=== PATIENT | male | born 1965 | race African-American/Black ===

== ENCOUNTER 2022-03-26 18:18 | Emergency (ER) | payer OTHER ==
[2022-03-26 21:05] VITALS: BP 125/90
[2022-03-26] MEDS ORDERED: IBUPROFEN 600 MG TAB PO ONE (23:25)
[2022-03-26] MEDS ORDERED: ACETAMINOPHEN 325 MG/10.15 ML ORAL LIQD UNIT DOSE PO ONE (23:25)
--- NOTE | 2022-03-26 23:30 | Emergency Department Report ---
ED General Adult HPI - General Chief complaint: Laceration/Recheck/Suture Stated complaint: 4TH META CARPAL BROKEN PUI?: No Time Seen by Provider: 03/26/22 23:23 Source: patient Mode of arrival: Ambulatory Limitations: No Limitations - History of Present Illness Initial comments: This is a 56-year-old male came in today after he sustained a fall on March 25 yesterday on the right hand. Patient denies any other symptoms. Patient she went to urgent care where he had x-ray done that revealed he is got transverse fracture of the proximal third of the shaft of the fourth metacarpal with angulation. During my evaluation patient is able to flex and extend his fingers of the right. Patient's sensation are intact as well. - Related Data Previous Rx's Medication Instructions Recorded Last Taken Type traMADoL [Ultram] 50 mg PO Q4HR PRN 4 Days #12 tablet 03/26/22 Unknown Rx ED Review of Systems ROS: Stated complaint: 4TH META CARPAL BROKEN Other details as noted in HPI Constitutional: see HPI Eyes: as per HPI ENT: as per HPI Respiratory: see HPI Cardiovascular: as per HPI Endocrine: see HPI Gastrointestinal: as per HPI Genitourinary: as per HPI Musculoskeletal: as per HPI Skin: as per HPI Neurological: as per HPI Psychiatric: as per HPI Hematological/Lymphatic: as per HPI ED Past Medical Hx - Past Medical History Previous Medical History?: No - Medications Home Medications: Home Medications Medication Instructions Recorded Confirmed Last Taken Type traMADoL [Ultram] 50 mg PO Q4HR PRN 4 Days #12 tablet 03/26/22 Unknown Rx ED Physical Exam - General Limitations: No Limitations General appearance: alert, in no apparent distress - Head Head exam: Present: atraumatic, normocephalic, normal inspection - Eye Eye exam: Present: normal appearance, PERRL, EOMI Pupils: Present: normal accommodation - ENT ENT exam: Present: normal exam - Neck Neck exam: Present: normal inspection - Respiratory Respiratory exam: Present: normal lung sounds bilaterally - Cardiovascular Cardiovascular Exam: Present: regular rate, normal rhythm - GI/Abdominal GI/Abdominal exam: Present: soft - Extremities Exam Extremities exam: Present: normal inspection, full ROM, tenderness (Point tenderness at fourth metacarpal bone of the right; mild swelling.), normal capillary refill - Back Exam Back exam: Present: normal inspection, full ROM, tenderness - Neurological Exam Neurological exam: Present: alert, altered, oriented X3 - Psychiatric Psychiatric exam: Present: normal affect, normal mood - Skin Skin exam: Present: warm ED Course Vital Signs 03/26/22 20:35 Temperature 98.0 F Pulse Rate 68 Respiratory 16 Rate Blood Pressure 125/90 O2 Sat by Pulse 99 Oximetry Critical care attestation.: If time is entered above; I have spent that time in minutes in the direct care of this critically ill patient, excluding procedure time. ED Disposition Clinical Impression: Metacarpal bone fracture Disposition: HOME / SELF CARE / HOMELESS Is pt being admited?: No Does the pt Need Aspirin: No Condition: Stable Instructions: Cast or Splint Care, Adult, [id number] Additional Instructions: Make a follow-up appoint with a hand orthopedic of your choice to be seen within 3 days. Referrals: HUAN AMBROSIO MD [Staff Physician] - 3-5 Days Time of Disposition: 23:32
--- NOTE | 2022-03-26 23:40 | XRay Report ---
RIGHT HAND 3 VIEW(S) INDICATION / CLINICAL INFORMATION: right hand pain metacarpal fx COMPARISON: None available. FINDINGS: BONES / JOINT(S): Transverse minimally comminuted fracture proximal ring finger metacarpal demonstrat es complete dorsal offset of the distal fracture interface. SOFT TISSUES: Moderate soft tissue swelling in the region of fracture. ADDITIONAL FINDINGS: None. IMPRESSION: 1. Ring finger metacarpal fracture as detailed. Signer Name: Liu Cunningham II, MD Signed: 03/26/2022 11:35 PM Workstation Name: [id number]
== END 2022-03-27 00:19 | disposition home or self-care (01) ==
LOC: ED 18:18
DX: S62.304A Unspecified fracture of fourth metacarpal bone, right hand, initial encounter for closed fracture (principal); W19.XXXA Unspecified fall, initial encounter; Y93.89 Activity, other specified; Y92.89 Other specified places as the place of occurrence of the external cause; Y99.8 Other external cause status
CPT/HCPCS: 99284